=== PATIENT | female | born 1970 | race Caucasian/White ===

== ENCOUNTER 2020-11-18 13:42 | Emergency (ER) | payer OTHER | END 2020-11-18 17:37 | disposition home or self-care (01) | LOC: FER 13:42 | DX: U07.1 COVID-19 (principal); Z88.2 Allergy status to sulfonamides; Z86.711 Personal history of pulmonary embolism; Z86.718 Personal history of other venous thrombosis and embolism; Z79.82 Long term (current) use of aspirin | CPT/HCPCS: M0243; Q0244 ==

== ENCOUNTER 2021-10-09 01:59 | Emergency (ER) | payer OTHER ==
[2021-10-09] MEDS ORDERED: MEDROL 4MG DOSEP4 MG PO (02:41)
== END 2021-10-09 03:20 | disposition home or self-care (01) ==
LOC: FER 01:59
DX: M54.12 Radiculopathy, cervical region (principal); I10 Essential (primary) hypertension; Z88.2 Allergy status to sulfonamides; Z79.899 Other long term (current) drug therapy; Z28.311 Partially vaccinated for COVID-19
CPT/HCPCS: 96372; 99283; J1885; J2920